=== PATIENT | male | born 1985 | race Caucasian/White ===

== ENCOUNTER 2020-05-12 07:03 | Day surgery (SDC) | payer BC ==
[~2020-05-12 07:03] MED LIST: Lactated Ringers 1,000 ML IV SCH; Lidocaine 1% 4 ML ONE; Lidocaine 1%/Sod Bicarbonate in NS 8.4% 1 ML Syringe IDERM PRN; Midazolam 1 MG/ML 2 ML SDV ONE; Propofol 200 MG/20 ML SDV ONE; Sodium Chloride 0.9% 10 ML Syringe FLUSH PRN; ceFAZolin 1 GM Vial ONE; fentaNYL 250 MCG/5 ML SDV ONE
[2020-05-12] MEDS ORDERED: Bupivacaine 0.5%/EPINEPHrine 1:200,000 50 ML MDV ONE (07:06)
--- NOTE | 2020-05-12 07:16 | PCM.PREANE ---
Preanesthetic Assessment - Anesthesia/Transfusion/Family Hx Anesthesia History: Prior Anesthesia Without Reaction Family History of Anesthesia Reaction: No Transfusion History: No Prior Transfusion(s) - Review of Systems General: No Symptoms Pulmonary: No Symptoms Cardiovascular: No Symptoms Gastrointestinal: No Symptoms Neurological: No Symptoms Other: Reports: None - Physical Assessment NPO Status Date: 05/11/20 NPO Status Time: 22:00 ASA Class: 2 Mental Status: Alert & Oriented x3 Dentition: Reports: Normal Dentition, Broken Tooth/Teeth (back bottom (L) molar) Thyro-Mental Finger Breadths: 3 Mouth Opening Finger Breadths: 3 ROM/Head Extension: Full Lungs: Clear to Auscultation, Normal Respiratory Effort Cardiovascular: Regular Rate, Regular Rhythm - Allergies Allergies/Adverse Reactions: Allergies Allergy/AdvReac Type Severity Reaction Status Date / Time No Known Allergies Allergy Verified 05/11/20 13:46 - Acknowledgements Anesthesia Type Planned: MAC Pt an Appropriate Candidate for the Planned Anesthesia: Yes Alternatives and Risks of Anesthesia Discussed w Pt/Guardian: Yes Pt/Guardian Understands and Agrees with Anesthesia Plan: Yes PreAnesthesia Questionnaire HEENT History: Reports: None Cardiovascular History: Reports: Hypertension (no medication) Respiratory History: Reports: None Gastrointestinal History: Reports: None Other Gastrointestinal History: umbilical mass Genitourinary History: Reports: None Musculoskeletal History: Reports: Back Pain, Chronic Neurological History: Reports: None Psychiatric History: Reports: None Endocrine/Metabolic History: Reports: None - Past Surgical History Head Surgeries/Procedures: Reports: None Musculoskeletal Surgical History: Reports: Shoulder Surgery - SUBSTANCE USE Smoking Status *Q: Never Smoker Other Tobacco Use Within Last Twelve Months: quit chewing tobacco 1 month ago Recreational Drug Use History: No Recreational Drug Type: Reports: Other (see below) (previous opioid abuse) - HOME MEDS Home Medications: Home Meds ASA/Calcium Carb/Mag/Aluminum [Kana Plus 500 MG] 1,000 mg PO DAILY 05/11/20 [History] - CURRENT (IN HOUSE) MEDS Current Meds: Current Medications Lactated Ringer's (Ringers, Lactated) 1,000 mls @ 125 mls/hr IV ASDIRECTED MARIO Stop: 05/12/20 23:00 Lidocaine/Sodium Bicarbonate (Buffered Lidocaine 1% In Ns 8.4%) 0.25 ml IDERM ONETIME PRN PRN Reason: Prior to IV Start Stop: 05/12/20 18:00 Sodium Chloride (Saline Flush) 10 ml FLUSH ASDIRECTED PRN PRN Reason: Keep Vein Open Stop: 05/12/20 18:00 Discontinued Medications Bupivacaine HCl/Epinephrine Bitart (Marcaine 0.5%/Epinephrine 1:200,000) Confirm Administered Dose 50 ml .ROUTE .STK-MED ONE Stop: 05/12/20 07:07 Cefazolin Sodium (Ancef) Confirm Administered Dose 2 gm .ROUTE .STK-MED ONE Stop: 05/12/20 07:04 Fentanyl (Sublimaze) Confirm Administered Dose 250 mcg .ROUTE .STK-MED ONE Stop: 05/12/20 06:59 Lidocaine HCl (Xylocaine-Mpf 1%) Confirm Administered Dose 4 mls @ as directed .ROUTE .STK-MED ONE Stop: 05/12/20 06:58 Midazolam HCl (Versed 1 Mg/Ml) Confirm Administered Dose 2 mg .ROUTE .STK-MED ONE Stop: 05/12/20 06:59 Propofol (Diprivan 20 Ml) Confirm Administered Dose 200 mg .ROUTE .STK-MED ONE Stop: 05/12/20 06:58
[2020-05-12] MEDS ORDERED: Propofol 200 MG/20 ML SDV ONE (07:28)
[2020-05-12] MEDS ORDERED: Midazolam 1 MG/ML 2 ML SDV ONE (07:29)
[2020-05-12] MEDS ORDERED: Ketorolac 30 MG/ML SDV ONE (08:20)
--- NOTE | 2020-05-12 08:41 | PCM48HPAN ---
Post Anesthesia Note - EVALUATION WITHIN 48HRS OF ANESTHETIC Vital Signs in Normal Range: Yes Patient Participated in Evaluation: Yes Respiratory Function Stable: Yes Airway Patent: Yes Cardiovascular Function Stable: Yes Hydration Status Stable: Yes Pain Control Satisfactory: Yes Nausea and Vomiting Control Satisfactory: Yes Mental Status Recovered: Yes Vital Signs: Last Vital Signs Temp 36.2 C 05/12/20 07:10 Pulse 79 05/12/20 07:10 Resp 16 05/12/20 07:10 BP 144/100 H 05/12/20 07:10 Pulse Ox 100 05/12/20 07:10
--- NOTE | 2020-05-12 08:58 | PCM.PRNOTE ---
- Free Text/Narrative Note: Date: 05/12/2020 Operation: open umbilical hernia repair with preperitoneal mesh patch placement Surgeon: Pratik Madison MD Findings: subcentimeter reducible umbilical hernia containing preperitoneal fat Detailed Report: The patient was taken to the OR and placed supine. Time out was performed and monitored anesthesia care initiated. The abdominal hair was clipped and abdomen prepped and draped in usual sterile fashion. 20 cc 0.5% marcaine with epinephrine was injected intradermally around the umbilicus. A 4 cm longitudinal paraumbilical incision was made with the scalpel down to subcutaneous tissue. The umbilical stalk was dissected circumferentially using a right angle clamp. The fascia at the base of the stalk was cleared of subcutaneous fatty tissue. The stalk was then amputated near the base, taking care to preserve the overlying skin. Preperitoneal fat was seen within the hernia. The fascial def ect measured about 7 mm. An additional 10 cc of local anesthetic was injected at the level of the fascia. The underlying peritoneum was intact, and this was bluntly pushed away from the fascia to create a preperitoneal space for mesh placement. A 4.5 cm circular mesh patch was placed in the space and straps were secured to the fascial edges with vicryl suture. The fascial defect was then closed primarily with two additional interrupted 0 vicryl sutures. The umbilical skin was tacked down to the underlying fascia with a vicryl stitch. The incision was closed at the deep dermal layer with interrupted sutures and the skin was closed with a running vicryl subcuticular stitch. The wound was dressed with dermabond. The patient tolerated the procedure well.
== END 2020-05-12 09:35 | disposition home or self-care (01) ==
LOC: MERGE 07:03 → JD.SDS 07:03
PROVIDERS: ATTEND Surgery
DX: K42.9 Umbilical hernia without obstruction or gangrene (principal); I10 Essential (primary) hypertension; Z79.899 Other long term (current) drug therapy
CPT/HCPCS: 49585; C1781; J0690; J1885; J2001; J2250; J2704; J3010; J3490; J7120

== ENCOUNTER → 2021-06-21 | Day surgery (SDC) | payer BC ==
[~2021-06-21] MED LIST changes: +Acetaminophen 325 MG Tab PO STA; +Bupivacaine 0.25% 10 ML SDV ONE; +EPINEPHrine 1 MG/ML SDV ONE; +Ketorolac 30 MG/ML SDV ONE; +Labetalol 100 MG/20 ML MDV ONE; +Lactated Ringers 1,000 ML ONE; +Lidocaine 1% 2 ML ONE; +Ondansetron 4 MG/2 ML SDV ONE; +Rocuronium 50 MG/5 ML Vial ONE; +Ropivacaine 0.5% 5 MG/ML 30 ML SDV ONE; +fentaNYL 100 MCG/2 ML SDV ONE; -fentaNYL 250 MCG/5 ML SDV ONE
--- NOTE | 2021-06-21 07:24 | PCM.PREANE ---
Preanesthetic Assessment - Procedure Proposed Procedure: Right Distal Biceps tendon Repair - Anesthesia/Transfusion/Family Hx Anesthesia History: Prior Anesthesia Without Reaction Family History of Anesthesia Reaction: No Transfusion History: No Prior Transfusion(s) - Review of Systems General: No Symptoms Pulmonary: No Symptoms Cardiovascular: No Symptoms Gastrointestinal: No Symptoms Neurological: Numbness (right thumb) Other: Reports: Thyroid Problems (This is being assessed) - Physical Assessment NPO Status Date: 06/20/21 NPO Status Time: 00:00 Height: 1.83 m Weight: 103.192 kg ASA Class: 2 Mental Status: Alert & Oriented x3 Airway Class: Mallampati = 1 Dentition: Reports: Normal Dentition, Missing Tooth/Teeth Thyro-Mental Finger Breadths: 3 Mouth Opening Finger Breadths: 3 ROM/Head Extension: Full Lungs: Clear to Auscultation, Normal Respiratory Effort Cardiovascular: Regular Rate, Regular Rhythm - Allergies Allergies/Adverse Reactions: Allergies Allergy/AdvReac Type Severity Reaction Status Date / Time No Known Allergies Allergy Verified 06/20/21 16:04 - Blood Blood Available: No Product(s) Available: None - Anesthesia Plan Pre-Op Medication Ordered: None - Acknowledgements Anesthesia Type Planned: Regional Block (interscalene block right shoulder for post-op pain control), MAC Pt an Appropriate Candidate for the Planned Anesthesia: Yes Alternatives and Risks of Anesthesia Discussed w Pt/Guardian: Yes Pt/Guardian Understands and Agrees with Anesthesia Plan: Yes PreAnesthesia Questionnaire HEENT History: Reports: None Cardiovascular History: Reports: Hypertension Respiratory History: Reports: None Gastrointestinal History: Other Gastrointestinal History: abdominal pain Genitourinary History: Reports: None 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 Musculoskeletal History: Reports: Back Pain, Chronic Neurological History: Reports: None Psychiatric History: Reports: None Endocrine/Metabolic History: Reports: None Hematologic History: Reports: None Immunologic History: Reports: None Oncologic (Cancer) History: Reports: None Dermatologic History: Reports: None - Infectious Disease History Infectious Disease History: Reports: None - Past Surgical History Head Surgeries/Procedures: Reports: None HEENT Surgical History: Reports: Oral Surgery Cardiovascular Surgical History: Reports: None Respiratory Surgical History: Reports: None GI Surgical History: Reports: Hernia Repair/Other Female Surgical History: Reports: None Male Surgical History: Reports: None Endocrine Surgical History: Reports: None Neurological Surgical History: Reports: None Musculoskeletal Surgical History: Reports: Shoulder Surgery, Other (See Below) Other Musculoskeletal Surgeries/Procedures:: right arm surgery Oncologic Surgical History: Reports: None Dermatological Surgical History: Reports: None - SUBSTANCE USE Tobacco Use Status *Q: Current Every Day Tobacco User Tobacco Use Within Last Twelve Months: Snuff/Dip Second Hand Smoke Exposure: No Days Per Week of Alcohol Use: 7 Number of Drinks Per Day: 2 Total Drinks Per Week: 14 Recreational Drug Use History: No - HOME MEDS Home Medications: Home Meds Aspirin/Caffeine [Kana Back-Body 500-32.5 mg] 2 tab PO ASDIRECTED PRN 06/20/21 [History] Lisinopril/Hydrochlorothiazide [Lisinopril-Hctz 20-12.5 mg Tab] 1 tab PO DAILY 06/20/21 [History] - CURRENT (IN HOUSE) MEDS Current Meds: Current Medications Lactated Ringer's (Ringers, Lactated) 1,000 mls @ 125 mls/hr IV ASDIRECTED MARIO Stop: 06/21/21 23:00 Lidocaine/Sodium Bicarbonate (Lidocaine 1%/Sod Bicarbonate In Ns 8.4% 1 Ml Syringe) 0.25 ml IDERM ONETIME PRN PRN Reason: Prior to IV Start Stop: 06/21/21 23:00 Sodium Chloride (Sodium Chloride 0.9% 10 Ml Syringe) 10 ml FLUSH ASDIRECTED PRN PRN Reason: Keep Vein Open Stop: 06/21/21 23:00 Discontinued Medications Cefazolin Sodium (Cefazolin 1 Gm Vial) Confirm Administered Dose 2 gm .ROUTE .STK-MED ONE Stop: 06/21/21 07:07 Epinephrine HCl (Epinephrine 1 Mg/Ml Sdv) Confirm Administered Dose 1 mg .ROUTE .STK-MED ONE Stop: 06/21/21 07:04 Lidocaine HCl (Xylocaine-Mpf 1%) Confirm Administered Dose 2 mls @ as directed .ROUTE .STK-MED ONE Stop: 06/21/21 07:06 Midazolam HCl (Midazolam 1 Mg/Ml 2 Ml Sdv) Confirm Administered Dose 2 mg .ROUTE .STK-MED ONE Stop: 06/21/21 07:06 Ropivacaine (Ropivacaine 0.5% 5 Mg/Ml 30 Ml Sdv) Confirm Administered Dose 30 ml .ROUTE .STK-MED ONE Stop: 06/21/21 07:04
--- NOTE | 2021-06-21 09:58 | PCM.POSTAN ---
POST ANESTHESIA ASSESSMENT - MENTAL STATUS Mental Status: Somnolent - RESPIRATORY Respiratory Status: Respiratory Rate WNL, Airway Patent, O2 Saturation Stable, Supplemental Oxygen - CARDIOVASCULAR CV Status: Pulse Rate WNL, Blood Pressure Stable - GASTROINTESTINAL GI Status: No Symptoms - PAIN Pain Score: 0 - POST OP HYDRATION Hydration Status: Adequate & Stable - OBSERVATIONS Free Text/Narrative:: no anesthesia complications noted
--- NOTE | 2021-06-21 10:04 | CR ---
Right forearm: 8 fluoroscopic spot views were obtained of the right proximal forearm utilizing C-arm device. Comparison: Prior right forearm study of 06/06/21. Study shows apparent fixation of biceps tendon to the radius. Soft tissue air is noted. Fluoroscopy time given is 10.0 seconds. Impression: 1. Procedural study as described above. Diagnostic code #2
--- NOTE | 2021-06-21 10:41 | PCM48HPAN ---
Post Anesthesia Note - EVALUATION WITHIN 48HRS OF ANESTHETIC Vital Signs in Normal Range: Yes Patient Participated in Evaluation: Yes Respiratory Function Stable: Yes Airway Patent: Yes Cardiovascular Function Stable: Yes Hydration Status Stable: Yes Pain Control Satisfactory: Yes Nausea and Vomiting Control Satisfactory: Yes Mental Status Recovered: Yes Vital Signs: Last Vital Signs Temp 36.4 C 06/21/21 10:15 Pulse 97 06/21/21 10:15 Resp 16 06/21/21 10:15 BP 114/68 06/21/21 10:15 Pulse Ox 91 L 06/21/21 10:15
--- NOTE | 2021-06-21 11:45 | PCM.SN.2 ---
- Free Text/Narrative Note: Anesthesia Note: Interscalene Block Time Out: 738 Start: 738 Stop: 757 Current Procedure: Right interscalene block under US guidance for postoperative pain control requested by Dr. Gross. Patient chart reviewed, risk/benefits discussed with patient, consent obtained. Patient positioned supine, monitors/alarms on, oxygen placed via nasal cannula at 2 LPM. IV sedation administered: Versed 4mg IV given in preop prior to block placement. Right shoulder prepped with two chloropreps. Sterile drapes placed with aseptic technique noted. Under US guidance, right subclavian artery visualized along with the right brachial plexus. Plexus followed up to C6 cricoid level, and area localized with 2mls of 1% lidocaine. 22gauge 2 inch stimiplex needle advanced under US with 0.8mV with stimulation of biceps noted. Good stimulation noted with decreased voltage and absent at 0.3mVs. 1ml of Normal Saline injected with loss of stimulation noted to confirm needle not placed intraneurally. Incremental dosing of 5mls with negative aspiration noted prior to each injection of 0.5% ropivacaine with 1:200,000 epinephrine. Total volume=30mls. Please refer to nurses noted for vital signs. Mika Blum CRNA Time Documentation
--- NOTE | 2021-06-30 08:20 | PCM.OPNOTE ---
- General Post-Op/Procedure Note Date of Surgery/Procedure: 06/21/21 Operative Procedure(s): right distal biceps tendon repair Pre Op Diagnosis: right distal biceps tendon rupture Post-Op Diagnosis: Same Anesthesia Technique: General LMA, Regional Block Primary Surgeon: Flaco Gross Anesthesia Provider: Mika Blum Is Consultant: Joanna Lowery EBL in mLs: 5 Complications: None Condition: Good
--- NOTE | 2021-07-03 17:27 | OR ---
DATE OF OPERATION: 06/21/2021 SURGEON: Flaco Gross MD OPERATION PERFORMED: Right distal biceps tendon repair. PREOPERATIVE DIAGNOSIS: Right distal biceps tendon rupture. POSTOPERATIVE DIAGNOSIS: Right distal biceps tendon rupture. ANESTHESIA: General LMA with regional block. ANESTHESIA PROVIDER: Leodan Kwong. SPACE BUYER: Joanna Lowery PA-C ESTIMATED BLOOD LOSS: Less than 5 mL. COMPLICATIONS: None. CONDITION: Stable. DESCRIPTION OF PROCEDURE: The patient was identified in the preoperative holding area. Proper site was marked and identified by the surgeon. The patient was taken back to the operative theater, where after adequate anesthesia, the patient's right upper extremity was sterilely prepped and draped in the usual sterile fashion. OR time-out was performed. The patient received 2 g IV Ancef at this time. Right upper extremity was exsanguinated. Tourniquet was insufflated to 200 mmHg. Standard transverse incision was made over the distal radial tuberosity. Blunt dissection was taken down to the radial tuberosity and the biceps tendon. Biceps tendon was found to be near complete full-thickness tear off the radial tuberosity with scarring. There was no significant retraction at this time. The nonviable tissue at the end of the biceps tendon was resected. This was then resected to fit through 8 mm guide. The end of the tendon 2 cm was then whipstitched with Arthrex FiberLoop. The guide pin was then placed on the radial tuberosity in a center-center position and was angled 30 degrees ulnarly and 30 degrees distally. On C-arm fluoroscopy, was found to be in adequate position. This guide pin was then placed bicortically. An 8 mm reamer then was utilized through the near cortex only. Endobutton was then placed on the stitched ends of the distal biceps tendon. This was then placed through the far cortex and was flipped. The tendon was then shuttled down into the bony tunnel and a knot pusher was used to tie a knot. It was found to have adequate fixation. C-arm fluoroscopy showed the Endobutton to be flipped in adequate position. An 8 mm interference screw was then placed and the patient had anatomic yazdanism of the footprint on the radial tuberosity. Saline was irrigated through the wound. 3-0 Vicryl was used subcutaneously and Monocryl was used for closure of the skin. The patient was placed in a sterile soft dressing and a posterior slab splint and sent to the PACU in stable condition. ELEN /[id number]
== END | disposition home or self-care (01) ==
LOC: JD.SDS 07:01
PROVIDERS: ATTEND Orthopaedic Surgery
DX: S46.211A Strain of muscle, fascia and tendon of other parts of biceps, right arm, initial encounter (principal); I10 Essential (primary) hypertension; G89.18 Other acute postprocedural pain; F17.210 Nicotine dependence, cigarettes, uncomplicated; Z79.899 Other long term (current) drug therapy; Z98.890 Other specified postprocedural states
CPT/HCPCS: 24342; 76000; C1776; J0171; J0690; J1885; J2250; J2405; J2704; J2795; J3010; J3490; J7120; 01710; 64415; 76942